=== PATIENT | male | born 1975 | race Caucasian/White ===

== ENCOUNTER 2017-08-27 05:51 | Emergency (ER) | payer OTHER ==
[~2017-08-27] VITALS: Ht 162.6 cm; Wt 65.8 kg
[2017-08-27 06:10] VITALS: Ht 162.6 cm; Wt 65.8 kg
[2017-08-27 06:54] VITALS: BP 103/61
== END 2017-08-27 06:54 | disposition home or self-care (01) ==
LOC: ED 05:51
DX: M54.5 Low back pain (principal)
CPT/HCPCS: J1885